=== PATIENT | male | born 1985 | race Two or more races ===

== ENCOUNTER 2023-10-06 12:27 | Inpatient (IN) | payer BC ==
[2023-10-06] MEDS: SODIUM CHLORIDE 0.9% 1000 ML INFUS.BAG IV ONE (13:59)
[2023-10-06] MEDS: KETOROLAC TROMETHAMINE 30 MG/1 ML VIAL IVPUSH ONE (13:59)
[2023-10-06 14:00] LABS: BASO % 0.8 % (0-2.0); EOS % 9.6 % (0-4.5); HEMATOCRIT 41.5 % (35.4-49); HEMOGLOBIN 14.1 GM/dL (11.7-16.9); MCHC 33.9 g/dl (32.0-35.9); MEAN CELL VOLUME 85.4 fl (80-96); MEAN PLT VOLUME 8.3 fl (7.5-11.1); MONO % 9.8 % (3.8-10.2); NEUT % 64.8 % (42.8-82.8); PLATELET COUNT 310 10^3/uL (134-434); RBC 4.85 M/mm3 (4.00-5.60); RDW 13.5 % (11.9-15.9); WHITE BLOOD COUNT 9.8 K/mm3 (4.0-10.0)
[2023-10-06] MEDS: ONDANSETRON 4 MG/2 ML VIAL IVPUSH ONE (14:00)
[2023-10-06] MEDS: HYDROmorphone HCl 2 MG/ML VIAL IVPUSH STA (14:00)
[2023-10-06 14:28] LABS: PH,URINE 6.5 (5.0-8.0); URINE APPEARANCE CLEAR; URINE BILIRUBIN NEGATIVE (NEGATIVE); URINE COLOR YELLOW; URINE GLUCOSE (UA) NEGATIVE (NEGATIVE); URINE KETONE NEGATIVE (NEGATIVE); URINE LEUK ESTERASE NEGATIVE (NEGATIVE); URINE NITRITE NEGATIVE (NEGATIVE); URINE PROTEIN NEGATIVE (NEGATIVE)
[2023-10-06 15:16] LABS: POTASSIUM 3.8 mmol/L (3.5-5.1)
[2023-10-06 15:17] LABS: CALCIUM 9.4 mg/dL (8.5-10.1)
[2023-10-06 15:18] LABS: ALBUMIN 3.6 g/dl (3.4-5.0); BLOOD UREA NITROGEN 19.5 mg/dL (7-18)
[2023-10-06 15:21] LABS: CREATININE 0.8 mg/dL (0.55-1.3)
[2023-10-06 15:23] LABS: BILIRUBIN,TOTAL 0.3 mg/dL (0.2-1); TOT PROT 7.3 g/dl (6.4-8.2)
[2023-10-06 17:58] VITALS: RESP 18
[2023-10-06] MEDS ORDERED: CEFTRIAXONE 1 GM/50 ML BAG ONE (17:58)
[2023-10-06] MEDS: CEFTRIAXONE 1,000 MG in DEXTROSE 5%-WATER - 50 ML IVPB ONE (18:03)
[2023-10-06] MEDS: AZITHROMYCIN IVPB 500 MG in DEXTROSE 5%-WATER - 250 ML IVPB ONE (18:30)
[2023-10-06] MEDS ORDERED: ONDANSETRON 4 MG/2 ML VIAL IVPUSH PRN (18:31)
[2023-10-06] MEDS ORDERED: ACETAMINOPHEN 1000 MG/100 ML BAG IVPB PRN (18:42)
[2023-10-06 20:01] VITALS: BMI 40.1
[2023-10-07 06:12] VITALS: BP 137/92; PULSE 97; TEMP 98.2
[2023-10-07 09:00] LABS: HEMATOCRIT 40.9 % (35.4-49); HEMOGLOBIN 13.3 GM/dL (11.7-16.9); MCH 28.3 pg (25.7-33.7); MCHC 32.6 g/dl (32.0-35.9); MEAN CELL VOLUME 86.7 fl (80-96); MEAN PLT VOLUME 8.5 fl (7.5-11.1); PLATELET COUNT 296 10^3/uL (134-434); RBC 4.71 M/mm3 (4.00-5.60); RDW 13.5 % (11.9-15.9); WHITE BLOOD COUNT 8.9 K/mm3 (4.0-10.0)
[2023-10-07 09:20] LABS: CALCIUM 8.9 mg/dL (8.5-10.1)
[2023-10-07 09:21] LABS: ALBUMIN 3.4 g/dl (3.4-5.0); MAGNESIUM 1.9 mg/dL (1.8-2.4)
[2023-10-07 09:24] LABS: CHOLESTEROL 146 mg/dL (50-200); PHOSPHOROUS 3.4 mg/dL (2.5-4.9)
[2023-10-07 09:25] LABS: LDL CHOLESTEROL (ONLY SJRH) 82 mg/dL (5-100)
[2023-10-07 09:26] LABS: BILIRUBIN,TOTAL 0.4 mg/dL (0.2-1); HDL CHOLESTEROL 51 mg/dL (40-60); TOT PROT 6.9 g/dl (6.4-8.2)
[2023-10-07 09:30] LABS: BLOOD UREA NITROGEN 18.6 mg/dL (7-18); CREATININE 0.8 mg/dL (0.55-1.3)
[2023-10-07] MEDS: ENOXAPARIN NA (PORCINE) 40 MG/0.4 ML DISP.SYRIN SQ SCH (10:15)
[2023-10-07] MEDS ORDERED: TAMSULOSIN HCL 0.4 MG CAP PO SCH (22:00)
== END 2023-10-07 13:31 | disposition home or self-care (01) | DRG 187 ==
LOC: JER 12:27 → JERBED 17:13 → OBSVTOIN 17:13 → J5S 18:34
PROVIDERS: ADMIT Internal Medicine; ATTEND Internal Medicine
DX: J90 Pleural effusion, not elsewhere classified (principal); Z68.41 Body mass index [BMI] 40.0-44.9, adult; G47.30 Sleep apnea, unspecified; E66.01 Morbid (severe) obesity due to excess calories
CPT/HCPCS: 36415; 71045-TC-FY; 74176-TC; 76705-TC; 80053; 80061; 81003; 83036; 83735; 84100; 85025; 85027; 86850; 86900; 86901; 87086; 93005; 93010; 99285-25

== ENCOUNTER 2023-10-19 05:08 | Day surgery (SDC) | payer BC ==
[2023-10-16 08:52] VITALS: BMI 38.7
[2023-10-19 09:56] LABS: INR 1.25 (0.83-1.09); PROTHROMBIN TIME (PATIENT) 14.5 SEC (9.7-13.0)
[2023-10-19 14:02] VITALS: BP 122/79; PULSE 110; RESP 17; TEMP 99.5
[2023-10-19 14:24] LABS: BF WBC & OTHER NUCLEATED CELLS 2267 /mm3; BODY FLUID MONOCYTE 4 %; BODYL FLD EOSINOPHIL 47 %
[2023-10-20 14:08] LABS: BODY FLUID ALBUMIN 3.5 g/dL (Not Estab.)
== END 2023-10-19 14:06 | disposition home or self-care (01) ==
LOC: JRADIR 05:08
PROVIDERS: ATTEND Internal Medicine
PROC: 0W993ZX Drainage of Right Pleural Cavity, Percutaneous Approach, Diagnostic (ICD-10-PCS; principal; 2023-10-19)
DX: J90 Pleural effusion, not elsewhere classified (principal)
CPT/HCPCS: 32555; 36415; 76942; 82042; 82150; 82465; 82945; 83615; 83986; 84157; 84478; 85610; 87070; 87075; 87102; 87116; 87205; 87206; 87210; 88108; 88305-TC